=== PATIENT | male | born 1975 | race Caucasian/White ===

== ENCOUNTER 2018-04-24 03:42 | Emergency (ER) | payer MEDICARE ==
[~2018-04-24] VITALS: Ht 170.2 cm; Wt 77.1 kg
[2018-04-24 03:47] VITALS: Ht 170.2 cm; Wt 77.1 kg
[2018-04-24 05:03] VITALS: BP 120/70
== END 2018-04-24 05:03 | disposition home or self-care (01) ==
LOC: D.ER 03:42
DX: S00.461A Insect bite (nonvenomous) of right ear, initial encounter (principal); W57.XXXA Bitten or stung by nonvenomous insect and other nonvenomous arthropods, initial encounter; Y93.89 Activity, other specified; Y92.019 Unspecified place in single-family (private) house as the place of occurrence of the external cause; T16.1XXA Foreign body in right ear, initial encounter

== ENCOUNTER 2019-05-22 19:39 | Emergency (ER) | payer SELFPAY ==
[~2019-05-22] VITALS: Ht 170.2 cm; Wt 72.7 kg
[2019-05-22 19:52] VITALS: Ht 170.2 cm; Wt 72.7 kg
[2019-05-22 20:10] VITALS: BP 135/80
== END 2019-05-22 20:10 | disposition home or self-care (01) ==
LOC: D.ER 19:39
DX: R09.81 Nasal congestion (principal); R05 Cough